=== PATIENT | female | born 1960 | race Caucasian/White ===

== ENCOUNTER 2018-04-04 11:21 | Emergency (ER) | payer MEDICARE ==
[~2018-04-04] VITALS: Ht 157.4 cm; Wt 40.8 kg
[2018-04-04 11:57] LABS: HEMATOCRIT 42.4 % (37.0-47.0); HEMOGLOBIN 13.9 g/dl (12.0-16.0); MEAN CELL VOLUME 91.8 fl (81.0-99.0); MEAN CORPUSCULAR HGB 30.1 pg (27.0-31.0); MEAN CORPUSCULAR HGB CONC 32.8 g/dl (33.0-37.0); MEAN PLATELET VOLUME 9.4 fl (9.6-12.3); PLATELET COUNT AUTOMATED 287 10*3/uL (130-400); RED BLOOD COUNT 4.62 10*6/uL (4.10-5.10); RED CELL DISTRI WIDTH 12.9 % (0-14.5); WHITE BLOOD COUNT 9.2 10*3/uL (4.8-10.8)
[2018-04-04 12:00] LABS: BILIRUBIN NEGATIVE (NEGATIVE); BLOOD TRACE-INTACT (NEGATIVE); CLARITY SL CLOUDY (CLEAR); COLOR YELLOW (YELLOW); GLUCOSE NEGATIVE (NEGATIVE); KETONE NEGATIVE (NEGATIVE); LEUKO ESTERASE NEGATIVE (NEGATIVE); NITRITE NEGATIVE (NEGATIVE); UROBILINOGEN 0.2 E.U./dl (0.2-1.0)
[2018-04-04 12:11] LABS: ALBUMIN 3.6 gm/dl (3.1-4.5); ALKALINE PHOSPHATASE 83 U/L (45-117); BUN 14 mg/dl (7-24); CHLORIDE 99 mmol/L (98-107); CREATININE 0.92 mg/dL (0.55-1.02); LIPASE 643 U/L (73-393); POTASSIUM 4.6 mmol/L (3.5-5.1); SGOT/AST 20 IU/L (3-35); SGPT/ALT 28 U/L (12-78); SODIUM 137 mmol/L (136-145); TOTAL PROTEIN 8.1 gm/dL (6.4-8.2)
[2018-04-04 12:21] LABS: TOTAL CELLS COUNTED 100 #CELLS
[2018-04-04 12:22] LABS: PLATELET SUFFICIENCY NORMAL (NORMAL)
[2018-04-04] MEDS ORDERED: CARAFATE1 GM/10 ML PO (14:19)
[2018-04-04] MEDS ORDERED: Zofran4 MG PO (14:19)
== END 2018-04-04 14:59 | disposition home or self-care (01) ==
LOC: ED 11:21
PROVIDERS: Nurse Practitioner Family
DX: K85.90 Acute pancreatitis without necrosis or infection, unspecified (principal); K29.00 Acute gastritis without bleeding

== ENCOUNTER 2019-10-06 15:06 | Emergency (ER) | payer MEDICARE ==
[~2019-10-06] VITALS: Ht 157.4 cm; Wt 39.9 kg
[~2019-10-06 15:06] MED LIST: CARAFATE1 GM/10 ML PO; Zofran4 MG PO
[2019-10-06 15:44] LABS: BILIRUBIN 1+ (NEGATIVE); BLOOD 3+ (NEGATIVE); CLARITY SL CLOUDY (CLEAR); COLOR YELLOW (YELLOW); GLUCOSE NEGATIVE (NEGATIVE); KETONE NEGATIVE (NEGATIVE); LEUKO ESTERASE TRACE (NEGATIVE); NITRITE NEGATIVE (NEGATIVE); UROBILINOGEN 0.2 E.U./dl (0.2-1.0)
[2019-10-06 15:45] LABS: BACTERIA 2+; MUCOUS TRACE; WBC 21-30 wbc/hpf (0-5)
[2019-10-06 19:40] LABS: HEMATOCRIT 37.5 % (37.0-47.0); MEAN CORPUSCULAR HGB 30.1 pg (27.0-31.0); MEAN PLATELET VOLUME 9.1 fl (9.6-12.3); PLATELET COUNT AUTOMATED 277 10*3/uL (130-400); RED BLOOD COUNT 3.99 10*6/uL (4.10-5.10); WHITE BLOOD COUNT 13.8 10*3/uL (4.8-10.8)
[2019-10-06 19:51] LABS: ACT PARTIAL THROMBO TIME 25.1 SECONDS (20.0-32.1)
[2019-10-06 19:55] LABS: ALBUMIN 3.3 gm/dl (3.1-4.5); CREATININE 1.51 mg/dL (0.55-1.02); POTASSIUM 4.5 mmol/L (3.5-5.1)
[2019-10-06 20:04] LABS: PLATELET SUFFICIENCY NORMAL (NORMAL); TOTAL CELLS COUNTED 100 #CELLS
== END 2019-10-06 21:23 | disposition short-term general hospital (02) ==
LOC: ED 15:06
PROVIDERS: Emergency Medicine; Internal Medicine
DX: N13.2 Hydronephrosis with renal and ureteral calculous obstruction (principal)

== ENCOUNTER → 2019-10-27 | Outpatient (CLI) | payer MEDICARE | END | disposition home or self-care (01) | LOC: RAD 12:31 | DX: Z48.816 Encounter for surgical aftercare following surgery on the genitourinary system (principal); K59.00 Constipation, unspecified; Z96.0 Presence of urogenital implants ==

== ENCOUNTER 2019-11-28 17:19 | Emergency (ER) | payer MEDICARE ==
[~2019-11-28] VITALS: Ht 157.4 cm; Wt 41.7 kg
== END 2019-11-28 21:50 | disposition short-term general hospital (02) ==
LOC: ED 17:19
DX: S72.091A Other fracture of head and neck of right femur, initial encounter for closed fracture (principal); M23.91 Unspecified internal derangement of right knee; M25.551 Pain in right hip; X50.1XXA Overexertion from prolonged static or awkward postures, initial encounter; Y93.89 Activity, other specified; Y92.098 Other place in other non-institutional residence as the place of occurrence of the external cause; Y99.9 Unspecified external cause status

== ENCOUNTER → 2020-02-04 | Outpatient (CLI) | payer MEDICARE | END | disposition home or self-care (01) | LOC: RAD 01:47 | DX: M41.20 Other idiopathic scoliosis, site unspecified (principal); R64 Cachexia; Z78.0 Asymptomatic menopausal state; Z96.641 Presence of right artificial hip joint ==

== ENCOUNTER → 2020-04-18 | Outpatient (CLI) | payer MEDICARE ==
[2020-04-18 08:00] LABS: ALBUMIN 3.8 gm/dl (3.1-4.5); ALKALINE PHOSPHATASE 106 U/L (45-117); BUN 26 mg/dl (7-24); CHLORIDE 108 mmol/L (98-107); CREATININE 0.91 mg/dL (0.55-1.02); FREE T4 1.08 ng/dl (0.76-1.46); POTASSIUM 3.9 mmol/L (3.5-5.1); SGOT/AST 21 IU/L (3-35); SGPT/ALT 23 U/L (12-78); SODIUM 141 mmol/L (136-145); TOTAL PROTEIN 7.9 gm/dL (6.4-8.2)
[2020-04-18 08:49] LABS: PTH INTACT 30.9 pg/mL (18.5-88.0); VITAMIN D, 25-HYDROXY 62.9 ng/mL (30-100)
[2020-04-19 05:06] LABS: TOTAL PROTEIN, SERUM 7.2 g/dL (6.0-8.5)
[2020-04-19 08:12] LABS: IMMUNOGLOBULIN G, QNT 928 mg/dL (586-1602); IMMUNOGLOBULIN M, QNT 84 mg/dL (26-217)
[2020-04-19 10:09] LABS: CREATININE,URINE 103.6 mg/dL (Not Estab.)
[2020-04-19 10:46] LABS: URINE VOLUME 600 mL
[2020-04-19 12:07] LABS: t-TRANSGLUTAMINASE (tTG) IGA <2 U/mL (0-3)
[2020-04-19 16:09] LABS: A/G RATIO 1.3 (0.7-1.7); ALPHA-1-GLOBULIN 0.3 g/dL (0.0-0.4); GAMMA GLOBULIN 0.9 g/dL (0.4-1.8); GLOBULIN, TOTAL 3.2 g/dL (2.2-3.9); M-SPIKE Not Observed g/dL (Not Observed)
[2020-05-01 15:09] LABS: BUSHITE 3.76 ratio (0.00-3.00); CALCIUM OXALATE 5.83 ratio (0.00-6.00); CITRIC ACID (CITRATE) 472 mg/24 hr (320-1240); CREATININE, URINE 99.5 mg/dL (Not Estab.); MAGNESIUM, URINE 9.2 mg/dL (Not Estab.); MONOSODIUM URATE 9.47 ratio (0.00-4.00); OSMOLALITY, URINE 780 (300-900); SODIUM, URINE 165 mmol/L (Not Estab.); SODIUM, URINE 99 (39-258); STRUVITE 0.91 ratio (0.00-1.00); URIC ACID 0.06 ratio (0.00-1.20); pH 24 HR URINE 7.6 (.)
== END | disposition home or self-care (01) ==
LOC: LAB 00:29
PROVIDERS: ATTEND Internal Medicine Endocrinology, Diabetes & Metabolism
DX: M80.80XS Other osteoporosis with current pathological fracture, unspecified site, sequela (principal); N20.0 Calculus of kidney; Z79.899 Other long term (current) drug therapy

== ENCOUNTER 2020-05-15 14:29 | Emergency (ER) | payer MEDICARE ==
[~2020-05-15] VITALS: Ht 152.4 cm; Wt 38.6 kg
== END 2020-05-15 15:05 | disposition home or self-care (01) ==
LOC: ED 14:29
DX: T80.1XXA Vascular complications following infusion, transfusion and therapeutic injection, initial encounter (principal); Y92.89 Other specified places as the place of occurrence of the external cause

== ENCOUNTER → 2020-06-22 | Outpatient (CLI) | payer MEDICARE | END | disposition home or self-care (01) | LOC: COVID19 09:19 | PROVIDERS: ATTEND Nurse Practitioner Family | DX: Z20.828 Contact with and (suspected) exposure to other viral communicable diseases (principal); R05 Cough ==